=== PATIENT | male | born 1950 | race Caucasian/White ===

== ENCOUNTER 2017-02-19 22:09 | Emergency (ER) | payer MEDICARE, BC ==
[~2017-02-19 22:09] MED LIST: Lactated Ringers 1,000 ML IV ONE; fentaNYL 100 MCG/2 ML SDV IVPUSH ONE
[2017-02-19 22:26] LABS: CHLORIDE,CL 106 mEq/L (98-106); SODIUM,NA 143 mEq/L (136-145)
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
[2017-02-19] MEDS ORDERED: cefTRIAXone 1 GM Vial IVPUSH SCH (23:00)
[2017-02-19] MEDS ORDERED: Diphtheria,Pertussis(Acell),Tetanus Vaccine 0.5 ML Syringe IM ONE (23:19)
[2017-02-19] MEDS ORDERED: Lactated Ringers 1,000 ML IV SCH (23:30)
[2017-02-19] MEDS ORDERED: fentaNYL 100 MCG/2 ML SDV IVPUSH ONE (23:31)
[2017-02-19 23:49] VITALS: BP 157/88
== END 2017-02-20 00:15 ==
LOC: CC.ED 22:09
DX: S71.101A Unspecified open wound, right thigh, initial encounter (principal); Z88.5 Allergy status to narcotic agent; Z79.899 Other long term (current) drug therapy; Z23 Encounter for immunization; W34.00XA Accidental discharge from unspecified firearms or gun, initial encounter
CPT/HCPCS: 36415; 73552; 80048; 85025; 85610; 86140; 90471; 90715; 96361; 96374; 96375; 96376; 99285; J0696; J3010; J7120